=== PATIENT | female | born 1970 | race American Indian/Alaskan Native ===

== ENCOUNTER 2017-04-19 06:58 | Emergency (ER) | payer BC, OTHER ==
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
[2017-04-19 08:24] VITALS: BP 110/69
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
== END 2017-04-19 08:20 | disposition home or self-care (01) ==
LOC: MW.ED 06:58
DX: R07.81 Pleurodynia (principal); F17.210 Nicotine dependence, cigarettes, uncomplicated
CPT/HCPCS: 71020; 71020-26; 81001; 81025; 99283

== ENCOUNTER 2017-06-08 20:38 | Emergency (ER) | payer BC, OTHER ==
[2017-06-08] MEDS ORDERED: Nalbuphine 10 MG/1 ML Vial ONE (21:41)
[2017-06-08] MEDS: Nalbuphine 20 MG/1 ML Amp IM ONE ×2 (21:47→22:07)
--- NOTE | 2017-06-08 21:47 | EDM.PDOC ---
ED HPI GENERAL MEDICAL PROBLEM - General Chief Complaint: Back Pain or Injury Stated Complaint: LOW BACK PAIN/TROUBLE BREATHING Time Seen by Provider: 06/08/17 21:25 Source of Information: Reports: Patient - History of Present Illness INITIAL COMMENTS - FREE TEXT/NARRATIVE: She has worsening low back pain since last night she is not sure what triggered it. no vomiting no blunt force trauma no fecal or urinary incontinence. no fever she has a prior history of chronic back pain. Bilateral Lower Back Pain Score (Numeric/FACES): 10 - Related Data Allergies Allergy/AdvReac Type Severity Reaction Status Date / Time No Known Allergies Allergy Verified 06/08/17 20:49 Home Meds: Home Meds Ibuprofen 1 tab PO ASDIRECTED PRN 07/31/17 [History] Multivitamin [Multivitamins] 1 tab PO DAILY 07/31/17 [History] Polyethylene Glycol 3350 [MiraLAX] 1 dose PO ASDIRECTED PRN 07/31/17 [History] Past Medical History HEENT History: Reports: None Cardiovascular History: Reports: None Respiratory History: Reports: None Gastrointestinal History: Reports: None Genitourinary History: Reports: None 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 Musculoskeletal History: Reports: None Neurological History: Reports: None Psychiatric History: Reports: None Endocrine/Metabolic History: Reports: None Hematologic History: Reports: None Immunologic History: Reports: None Oncologic (Cancer) History: Reports: None Dermatologic History: Reports: None - Infectious Disease History Infectious Disease History: Reports: Chicken Pox - Past Surgical History Female Surgical History: Reports: Section Social & Family History - Family History Family Medical History: Noncontributory - Tobacco Use Smoking Status *Q: Current Every Day Smoker Years of Tobacco use: 32 Packs/Tins Daily: 1 - Caffeine Use Caffeine Use: Reports: Coffee - Recreational Drug Use Recreational Drug Use: No ED ROS GENERAL - Review of Systems Review Of Systems: See Below Constitutional: Denies: Diaphoresis (as per HPI) ED EXAM,LOWER BACK PAIN/INJURY - Physical Exam Exam: See Below Text/Narrative:: alert tearful mild diffuse lumbar tenderness no motor asymmetry of the LE denies radicular pain Course - Vital Signs Last Recorded V/S: Last Vital Signs Temp 97.4 F 06/08/17 20:44 Pulse 84 06/08/17 23:01 Resp 20 06/08/17 23:01 BP 120/70 06/08/17 23:01 Pulse Ox 94 L 06/08/17 23:01 - Orders/Labs/Meds Meds: Medications Discontinued Medications Generic Name Dose Route Start Last Admin Trade Name Maria Victoria PRN Reason Stop Dose Admin Nalbuphine HCl 20 mg 06/08/17 21:27 06/08/17 21:47 Nubain IM 06/08/17 21:28 20 mg ONETIME ONE Administration Nalbuphine HCl Confirm 06/08/17 21:41 06/08/17 21:47 Nubain Administered 06/08/17 21:42 Not Given Dose 20 mg .ROUTE .STK-MED ONE - Re-Assessments/Exams Free Text/Narrative Re-Assessment/Exam: 06/08/17 22:23 she feels significantly improved. Rudy Charlton MD Departure - Departure Time of Disposition: 22:23 Disposition: Home, Self-Care 01 Condition: Fair Clinical Impression: Back pain - Discharge Information Instructions: Back Pain, Adult Referrals: PCP,None [Primary Care Provider] - Forms: ED Department Discharge
[2017-06-08 23:01] VITALS: BP 120/70
== END 2017-06-08 23:15 | disposition home or self-care (01) ==
LOC: MW.ED 20:38
DX: G89.29 Other chronic pain (principal); M54.5 Low back pain; F17.210 Nicotine dependence, cigarettes, uncomplicated
CPT/HCPCS: 96372; 99281; 99283-25; J2300

== ENCOUNTER 2017-08-04 06:46 | Day surgery (SDC) | payer BC, OTHER ==
[~2017-08-04 06:46] MED LIST: Lactated Ringers 1,000 ML IV SCH
[2017-08-04] MEDS ORDERED: Propofol 200 MG/20 ML SDV ONE (07:16)
[2017-08-04] MEDS ORDERED: Dexamethasone 4 MG/ML 5 ML MDV ONE ×2 (07:16→07:21)
[2017-08-04] MEDS ORDERED: fentaNYL 100 MCG/2 ML SDV ONE (07:16)
[2017-08-04] MEDS ORDERED: Lidocaine 2% 100 MG/5 ML Syringe ONE (07:16)
[2017-08-04] MEDS ORDERED: Atropine 0.4 MG/ML SDV ONE ×2 (07:16→07:18)
[2017-08-04] MEDS ORDERED: ePHEDrine 50 MG/ML SDV ONE (07:16)
[2017-08-04] MEDS ORDERED: Ondansetron 4 MG/2 ML SDV ONE ×2 (07:16→07:21)
[2017-08-04] MEDS ORDERED: Midazolam 1 MG/ML 2 ML SDV ONE (07:17)
[2017-08-04] MEDS ORDERED: Bupivacaine 0.5% 30 ML SDV ONE (07:19)
[2017-08-04] MEDS ORDERED: Lidocaine 2% 5 ML SDV ONE (07:21)
[2017-08-04] MEDS ORDERED: Phenylephrine/Normal Saline 100 MCG/ML 10 ML Syringe ONE (07:21)
[2017-08-04] MEDS ORDERED: Ketorolac 30 MG/ML SDV ONE (07:21)
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
[2017-08-04] MEDS ORDERED: ceFAZolin 1 GM Vial ONE (07:40)
[2017-08-04] MEDS ORDERED: fentaNYL 100 MCG/2 ML SDV IVPUSH PRN (08:45)
[2017-08-04] MEDS ORDERED: Acetaminophen/HYDROcodone 325-5 MG Tab PO PRN (08:54)
--- NOTE | 2017-08-04 08:56 | PCM.OPNOTE ---
- General Post-Op/Procedure Note Date of Surgery/Procedure: 08/04/17 Operative Procedure(s): Excision right breast mass Pre Op Diagnosis: Palpable right breast mass Post-Op Diagnosis: Same Anesthesia Technique: General LMA (ASA II) Primary Surgeon: Jordan Cheema Fluid Replacement, Intraop: 750 EBL in mLs: 10 Condition: Good Free Text/Narrative:: Dictation [id number] CPT CODE 98851
[2017-08-04] MEDS ORDERED: Lactated Ringers 1,000 ML IV SCH (09:00)
--- NOTE | 2017-08-04 09:07 | PCM.POSTAN ---
POST ANESTHESIA ASSESSMENT - MENTAL STATUS Mental Status: Alert - RESPIRATORY Respiratory Status: Respiratory Rate WNL - CARDIOVASCULAR CV Status: Pulse Rate WNL, Blood Pressure Stable - GASTROINTESTINAL GI Status: No Symptoms - PAIN Pain Score: 3 - POST OP HYDRATION Hydration Status: Adequate & Stable - OBSERVATIONS Free Text/Narrative:: no anesthesia problems
[2017-08-04 11:23] VITALS: BP 108/63
--- NOTE | 2017-08-06 08:48 | OR ---
SURGEON: Jordan Cheema M.D. DATE OF PROCEDURE: 08/04/2017 OPERATION PERFORMED: Excision of right breast mass. ANESTHESIA: General LMA. ASA CLASSIFICATION: II. PREOPERATIVE DIAGNOSIS: Palpable right breast known fibrocystic breast disease with proliferative fibrocystic disease. POSTOPERATIVE DIAGNOSIS: Palpable right breast known fibrocystic breast disease with proliferative fibrocystic disease. ESTIMATED BLOOD LOSS: 10 mL. INTRAOPERATIVE FLUID REPLACEMENT: 750 mL of crystalloid. DESCRIPTION OF PROCEDURE: Surgical site had been marked prior to the patient entering the operating room. The patient was taken to the operating room and placed on the operating table in the supine position. Time-out was called for appropriate identification of the patient and procedure. Following satisfactory attainment of general anesthesia with placement of an LMA, the right chest was prepped with DuraPrep solution. Sterile drapes were applied. The mass in question was at the 12 o'clock position. A supraareolar incision was made and deepened through the subcutaneous tissue, obtaining hemostasis with the use of electrocautery. A generous excisional biopsy was carried out using electrocautery. Small bleeding sites were electrocoagulated. 2-0 silk suture was placed at the superior aspect of the specimen prior to handing it off the operating table. Palpation through the incision revealed no other masses within the right breast. The incision was then closed in 2 layers approximating the subcutaneous tissue with 3-0 Polysorb and the skin with subcuticular 4-0 Monocryl. Steri-Strips were placed over the incision, which was then dressed with fluffs and Mefix. Sponge, needle, and instrument counts were all correct. The patient tolerated the procedure well. Following emergence from anesthesia and extubation, she was taken to recovery room in stable condition. DIANN / LOPEZ /[id number] CC: REPORT FAXED TO: DR. MOOKIE MAZARIEGOS [facility] [phone] SANTI
--- NOTE | 2017-08-14 11:54 | OR ---
SURGEON: Jordan Cheema M.D. DATE OF PROCEDURE: 08/04/2017 ADDENDUM: The size of the breast mass removed was 1.6 cm. DIANN / LOPEZ /[id number]
== END 2017-08-04 10:15 | disposition home or self-care (01) ==
LOC: MW.SDS 06:46
PROVIDERS: ATTEND Surgery
DX: D24.1 Benign neoplasm of right breast (principal); F17.210 Nicotine dependence, cigarettes, uncomplicated; K21.9 Gastro-esophageal reflux disease without esophagitis; E66.9 Obesity, unspecified; Z79.899 Other long term (current) drug therapy; Z68.33 Body mass index [BMI] 33.0-33.9, adult
CPT/HCPCS: 19120; 88307; A9270; J0461; J1100; J1885; J2250; J2405; J3010; J7120; 00400; J0690; J2704

== ENCOUNTER 2020-01-06 22:28 | Inpatient (IN) | payer BC ==
[2020-01-06] MEDS ORDERED: Morphine 10 MG/ML Syringe IM ONE (23:26)
[2020-01-06] MEDS ORDERED: Ketorolac 15 MG/ML SDV IM ONE (23:26)
[2020-01-06] MEDS ORDERED: Ondansetron 4 MG Tab.DIS PO ONE (23:26)
[2020-01-07] MEDS ORDERED: Sodium Chloride 0.9% 2.5 ML Syringe FLUSH PRN (00:01)
[2020-01-07] MEDS ORDERED: Sodium Chloride 0.9% 10 ML Syringe FLUSH PRN (00:01)
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
--- NOTE | 2020-01-07 00:42 | CR ---
INDICATION: fall INDICATION: Fall TECHNIQUE: Chest 1 view. COMPARISON: Low lung volumes FINDINGS: Cardiovascular and mediastinum: Heart size and vasculature are normal in caliber and appearance. Mediastinum is within normal limits. Lungs and pleural space: Lungs are clear. No sign of infiltrate or mass. No sign of pleural effusion. No pneumothorax. Bones and soft tissues: No significant findings. IMPRESSION: Low lung volumes. Dictated by Jone Hamilton MD @ 01/07/2020 12:39:56 AM Dictated by: Jone Hamilton MD @ 01/07/2020 00:40:02 (Electronically Signed)
[2020-01-07 01:42] LABS: BLOOD UREA NITROGEN,BUN 11 mg/dL (7.0-18.0); CARBON DIOXIDE,CO2 19.2 mmol/L (21.0-32.0); CHLORIDE,CL 104 mmol/L (98-107); GLUCOSE RANDOM 127 mg/dL (74-106); POTASSIUM,K 4.2 mmol/L (3.5-5.1); SODIUM,NA 140 mmol/L (136-145)
[2020-01-07] MEDS ORDERED: Iopamidol 755 Mg/ML 100 ML Bottle IVPUSH ONE (02:39)
--- NOTE | 2020-01-07 03:12 | CT ---
INDICATION: Status post fall with chest and left rib pain. COMPARISON: Chest radiograph from earlier today. TECHNIQUE: CT examination of the chest was performed during the uneventful intravenous administration of 75 cc of Isovue 370. 3 mm thick axial sections were obtained from above the apices of the lungs to the lung bases. Please note that all CT scans at this facility use dose modulation, iterative reconstruction, and/or weight-based dosing when appropriate to reduce radiation dose to as low as reasonably achievable. FINDINGS: There are acute, nondisplaced left lateral 6th and mildly displaced left lateral 7th rib fractures. There may be an acute, nondisplaced fracture of the left lateral 8th rib, with sharp angulation but no definite cortical step-off. There is an acute, nondisplaced fracture of the posterior right 8th rib. There are acute, moderately displaced fractures of the left posterior 9th and 10th ribs. There is moderate patchy bibasilar infiltrate, consistent with atelectasis. There is no sign of pneumothorax, pleural effusion, or pulmonary contusion. There is mild diffuse ground-glass interstitial density representing mild, nonspecific pulmonary fibrosis. There is satisfactory enhancement of the pulmonary arteries, with no sign of pulmonary embolism. There is no sign of mediastinal or hilar mass or adenopathy. There is moderate LAD coronary calcification. The heart is otherwise normal in appearance for the patient`s age, as are the aorta and other ascending great vessels. There is no sign of supraclavicular or axillary mass or adenopathy. The visualized superior liver, spleen, pancreas, kidneys, and adrenals are normal in appearance. There is a moderate T11 compression fracture, more prominent on the right than the left, of indeterminate age. I do not see any paraspinous soft tissue swelling to suggest that this is an acute fracture. This fracture results in mild scoliosis of the inferior thoracic spine convex towards the left. There is no sign of fracture of the sternum, manubrium, or visualized shoulder girdle,. IMPRESSION: Fractures of the left lateral 6th, 7th, and possibly 8th ribs. Fractures of the posterior left 8th, 9th, and 10th ribs. No sign of pulmonary contusion, pneumothorax, pleural hematoma, or pleural effusion. Moderate patchy bibasilar infiltrates, probably atelectasis. Moderate T11 compression fracture, right greater than left, of indeterminate age. Please note that all CT scans at this facility use dose modulation, iterative reconstruction, and/or weight-based dosing when appropriate to reduce radiation dose to as low as reasonably achievable. Dictated by Darrell Todd MD @ Jan 07 2020 2:58AM Signed by Dr. Darrell Todd @ Jan 07 2020 3:09AM
--- NOTE | 2020-01-07 03:14 | CT ---
INDICATION: Neck pain after fall. COMPARISON: None available TECHNIQUE: CT examination of the lumbar spine is performed with spiral technique without contrast. 2 millimeter thick axial, sagittal and coronal reconstructions were made. Please note that all CT scans at this facility use dose modulation, iterative reconstruction, and/or weight-based dosing when appropriate to reduce radiation dose to as low as reasonably achievable. FINDINGS: : There is mild anterior wedging of the L3 vertebral body with mild depression of the superior endplate, findings a mild compression fracture of indeterminate age. I do not see any definite paraspinous soft tissue swelling to suggest an acute fracture, but an acute fracture cannot be excluded. The rest of the lumbar vertebral bodies are normal in height with no sign of any additional compression fractures. The intervertebral discs are normal in height. No foraminal stenosis is evident. The visualized abdominal viscera is normal in appearance. IMPRESSION: Mild L3 compression fracture of indeterminate age. Please note that all CT scans at this facility use dose modulation, iterative reconstruction, and/or weight-based dosing when appropriate to reduce radiation dose to as low as reasonably achievable. Dictated by Darrell Todd MD @ Jan 07 2020 3:10AM Signed by Dr. Darrell Todd @ Jan 07 2020 3:13AM
[2020-01-07] MEDS ORDERED: Lidocaine 5% 700 MG Patch TOP ONE (03:23)
[2020-01-07] MEDS ORDERED: cefTRIAXone 1 GM in Premix Bag 1 BAG IV ONE (03:23)
[2020-01-07] MEDS ORDERED: Lidocaine 5% 700 MG Patch ONE (03:24)
[2020-01-07] MEDS ORDERED: HYDROmorphone 2 MG/ML Syringe IVPUSH ONE (03:24)
[2020-01-07] MEDS ORDERED: Sodium Chloride 0.9% 10 ML SDV IV STA (03:24)
--- NOTE | 2020-01-07 03:40 | CT ---
INDICATION: Pain after fall COMPARISON: CT of the chest from today. TECHNIQUE: CT examination of the thoracic spine was performed using reconstruction from the spiral CT data of today`s CT of the chest. 2 millimeter thick axial sections were obtained from the base of the neck through the superior lumbar spine. Sagittal and coronal reconstructions were made. Please note that all CT scans at this facility use dose modulation, iterative reconstruction, and/or weight-based dosing when appropriate to reduce radiation dose to as low as reasonably achievable. FINDINGS: : There is a moderate T11 compression fracture, more prominent on the right than the left, resulting in mild scoliosis of the inferior thoracic spine to the left. There is no paraspinous soft tissue swelling and no fracture lines are seen in the endplates to suggest that this is an acute fracture, but an acute fracture cannot be excluded. Moderate sclerosis of the prominently depressed posterior superior endplate is consistent with an old endplate fracture. The rest of the thoracic vertebral bodies are normal in height with no sign of any additional compression fractures. There is mild depression of the superior T3, T4, and T6 endplates consistent with mild endplate fractures of indeterminate age. There is no sign of paraspinous soft tissue swelling. The visualized mediastinal structures are normal in appearance. As seen on the accompanying CT of the chest, there is moderate patchy consolidation of the posterior lower lobes consistent with atelectasis. The acute, moderately displaced, oblique fractures of the posterior left 9th and 10th ribs are again seen. The acute, nondisplaced, oblique fracture of the posterior left 8th rib is again seen. The visualized superior liver, spleen, pancreas, kidneys, and adrenals are normal in appearance. IMPRESSION: Moderate T11 compression fracture, more prominent on the right, of indeterminate age. This results in mild scoliosis of the inferior thoracic spine convex towards the left. Mild superior endplate fractures of T3, T4, and T6, of indeterminate age. Fractures of the posterior left 8th through 10th ribs, as seen on the accompanying CT of the chest. Moderate patchy infiltrate in the posterior lung bases, consistent with atelectasis. Please note that all CT scans at this facility use dose modulation, iterative reconstruction, and/or weight-based dosing when appropriate to reduce radiation dose to as low as reasonably achievable. Dictated by Darrell Todd MD @ Jan 07 2020 3:32AM Signed by Dr. Darrell Todd @ Jan 07 2020 3:39AM
[2020-01-07] MEDS ORDERED: Sodium Chloride 0.9% 1,000 ML IV SCH (03:45)
[2020-01-07] MEDS: Azithromycin 250 MG Tab PO SCH (05:44)
[2020-01-07] MEDS: Morphine 2 MG/ML Syringe IVPUSH PRN ×4 (07:57→22:18)
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
[2020-01-07] MEDS: Nicotine 21 MG/24 Hr Patch TRDERM SCH (10:07)
[2020-01-07] MEDS: Cyclobenzaprine 10 MG Tab PO SCH ×2 (10:07→20:39)
[2020-01-07] MEDS: Benzonatate 100 MG Cap PO PRN ×2 (10:07→18:43)
[2020-01-07] MEDS: Omeprazole 20 MG Cap.CR PO SCH ×2 (10:24→16:30)
--- NOTE | 2020-01-07 11:31 | CR ---
Chest: 2 views of the chest were obtained. Comparison: Prior chest x-ray performed earlier on the same day. Findings: Heart size and mediastinum are within normal limits. Lung markings are slightly increased which is most likely chronic. Mild bibasilar atelectasis is noted. More focal density seen on the lateral view within the lower lung and difficult to exclude pneumonia. Mild scoliosis is noted within the spine. Impression: 1. Bibasilar atelectasis. Equivocal pneumonia is noted on the lateral view (within the lower lobes) if patient has correlating symptoms. 2. Increased lung markings most likely chronic. Diagnostic code #3 This report was dictated in MDT
[2020-01-07] MEDS: Heparin Sodium 5,000 Units/ML Vial SUBCUT SCH (14:09)
[2020-01-07] MEDS: oxyCODONE 5 MG Tab PO PRN ×2 (16:30→20:37)
[2020-01-08] MEDS: oxyCODONE 5 MG Tab PO PRN ×5 (01:43→20:49)
[2020-01-08] MEDS: Heparin Sodium 5,000 Units/ML Vial SUBCUT SCH ×2 (01:44→13:22)
[2020-01-08] MEDS: Morphine 2 MG/ML Syringe IVPUSH PRN ×4 (02:53→18:30)
[2020-01-08] MEDS: Azithromycin 250 MG Tab PO SCH (05:57)
[2020-01-08] MEDS: Omeprazole 20 MG Cap.CR PO SCH ×2 (07:10→16:40)
[2020-01-08 07:37] LABS: BLOOD UREA NITROGEN,BUN 10 mg/dL (7.0-18.0); CARBON DIOXIDE,CO2 27.7 mmol/L (21.0-32.0); CHLORIDE,CL 103 mmol/L (98-107); GLUCOSE RANDOM 108 mg/dL (74-106); POTASSIUM,K 4.7 mmol/L (3.5-5.1); SODIUM,NA 138 mmol/L (136-145)
[2020-01-08] MEDS: Benzonatate 100 MG Cap PO PRN (09:13)
[2020-01-08] MEDS: Cyclobenzaprine 10 MG Tab PO SCH ×2 (09:13→20:49)
[2020-01-08] MEDS: Nicotine 21 MG/24 Hr Patch TRDERM SCH (09:14)
[2020-01-08] MEDS: cefTRIAXone 1 GM in Premix Bag 1 BAG IV SCH (09:17)
[2020-01-08] MEDS: Lidocaine 5% 700 MG Patch TOP PRN (09:20)
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
[2020-01-09] MEDS: Heparin Sodium 5,000 Units/ML Vial SUBCUT SCH ×2 (00:47→12:59)
[2020-01-09] MEDS: oxyCODONE 5 MG Tab PO PRN ×4 (00:48→13:13)
[2020-01-09] MEDS: Morphine 2 MG/ML Syringe IVPUSH PRN (03:52)
[2020-01-09 06:26] LABS: CARBON DIOXIDE,CO2 28.4 mmol/L (21.0-32.0); POTASSIUM,K 4.2 mmol/L (3.5-5.1)
[2020-01-09] MEDS: Omeprazole 20 MG Cap.CR PO SCH ×2 (06:41→17:01)
[2020-01-09] MEDS: Nicotine 21 MG/24 Hr Patch TRDERM SCH (09:04)
[2020-01-09] MEDS: Cyclobenzaprine 10 MG Tab PO SCH ×2 (09:05→20:20)
[2020-01-09] MEDS: cefTRIAXone 1 GM in Premix Bag 1 BAG IV SCH (09:12)
[2020-01-09] MEDS: Lidocaine 5% 700 MG Patch TOP PRN (09:36)
[2020-01-09] MEDS ORDERED: Acetaminophen 325 MG Tab PO PRN (10:17)
--- NOTE | 2020-01-09 10:20 | PCM.PN ---
- General Info Date of Service: 01/09/20 - Review of Systems Systems Review Comment:: right sided pain is improving, denies any fever or cough. - Patient Data Vitals - Most Recent: Last Vital Signs Temp 36.2 C 01/09/20 07:25 Pulse 89 01/09/20 07:25 Resp 16 01/09/20 07:25 BP 126/68 01/09/20 07:25 Pulse Ox 92 L 01/09/20 07:25 Weight - Most Recent: 104.326 kg I&O - Last 24 Hours: Intake & Output 01/08/20 01/09/20 01/09/20 22:59 06:59 14:59 Intake Total 800 500 Output Total 100 550 Balance 700 -50 Lab Results Last 24 Hours: Laboratory Results - last 24 hr 01/09/20 01/09/20 Range/Units 06:00 06:00 WBC 8.49 (4.0-11.0) K/uL RBC 4.60 (4.30-5.90) M/uL Hgb 13.4 (12.0-16.0) g/dL Hct 43.1 (36.0-46.0) % MCV 93.7 (80.0-98.0) fL MCH 29.1 (27.0-32.0) pg MCHC 31.1 (31.0-37.0) g/dL RDW Std Deviation 48.0 (28.0-62.0) fl RDW Coeff of Poly 14 (11.0-15.0) % Plt Count 278 (150-400) K/uL MPV 10.40 (7.40-12.00) fL Neut % (Auto) 63.2 (48.0-80.0) % Lymph % (Auto) 25.8 (16.0-40.0) % [place] % (Auto) 9.2 (0.0-15.0) % Eos % (Auto) 1.3 (0.0-7.0) % Baso % (Auto) 0.5 (0.0-1.5) % Neut # (Auto) 5.4 (1.4-5.7) K/uL Lymph # (Auto) 2.2 (0.6-2.4) K/uL [place] # (Auto) 0.8 (0.0-0.8) K/uL Eos # (Auto) 0.1 (0.0-0.7) K/uL Baso # (Auto) 0.0 (0.0-0.1) K/uL Nucleated RBC % 0.0 /100WBC Nucleated RBCs # 0 K/uL Sodium 140 (136-145) mmol/L Potassium 4.2 (3.5-5.1) mmol/L Chloride 103 (98-107) mmol/L Carbon Dioxide 28.4 (21.0-32.0) mmol/L BUN 9 (7.0-18.0) mg/dL Creatinine 1.0 (0.6-1.0) mg/dL Est Cr Clr Drug Dosing 61.23 mL/min Estimated GFR (MDRD) 58.9 ml/min Glucose 115 H (74-106) mg/dL Calcium 8.2 L (8.5-10.1) mg/dL Total Bilirubin 0.3 (0.2-1.0) mg/dL AST 20 (15-37) IU/L ALT 15 (14-63) IU/L Alkaline Phosphatase 68 (46-116) U/L Total Protein 6.0 L (6.4-8.2) g/dL Albumin 2.8 L (3.4-5.0) g/dL Globulin 3.2 (2.6-4.0) g/dL Albumin/Globulin Ratio 0.9 (0.9-1.6) Med Orders - Current: Current Medications Azithromycin (Zithromax) 250 mg PO Q24H [facility] Benzonatate (Tessalon Perles) 200 mg PO TID PRN PRN Reason: Cough Last Admin: 01/08/20 09:13 Dose: 200 mg Cyclobenzaprine HCl (Flexeril) 10 mg PO BID [facility] Last Admin: 01/09/20 09:05 Dose: 10 mg Heparin Sodium (Porcine) (Heparin Sodium) 5,000 units SUBCUT Q12H [facility] Last Admin: 01/09/20 00:47 Dose: 5,000 units Sodium Chloride (Normal Saline) 1,000 mls @ 999 mls/hr IV ASDIRECTED [facility] Last Admin: 01/07/20 03:41 Dose: 999 mls/hr Ceftriaxone Sodium/Dextrose 1 (gm/ Premix) 50 mls @ 100 mls/hr IV Q24H [facility] Last Admin: 01/09/20 09:12 Dose: 100 mls/hr Lidocaine (Lidoderm 5%) 700 mg TOP DAILY PRN PRN Reason: Pain Last Admin: 01/09/20 09:36 Dose: 700 mg Morphine Sulfate (Morphine) 2 mg IVPUSH Q3H PRN PRN Reason: Pain Last Admin: 01/09/20 03:52 Dose: 2 mg Nicotine (Habitrol) 21 mg TRDERM DAILY [facility] Last Admin: 01/09/20 09:04 Dose: 21 mg Omeprazole (Omeprazole) 20 mg PO BIDAC [facility] Last Admin: 01/09/20 06:41 Dose: 20 mg Oxycodone HCl (Oxycodone) 5 mg PO Q4H PRN PRN Reason: Pain Last Admin: 01/09/20 09:05 Dose: 5 mg Sodium Chloride (Saline Flush) 10 ml FLUSH ASDIRECTED PRN PRN Reason: Keep Vein Open Sodium Chloride (Saline Flush) 2.5 ml FLUSH ASDIRECTED PRN PRN Reason: Keep Vein Open Discontinued Medications Azithromycin (Zithromax) 500 mg PO Q24H [facility] Last Admin: 01/08/20 05:57 Dose: 500 mg Hydromorphone HCl (Dilaudid) 1 mg IVPUSH ONETIME ONE Stop: 01/07/20 03:25 Last Admin: 01/07/20 03:33 Dose: 1 mg Ceftriaxone Sodium/Dextrose 1 (gm/ Premix) 50 mls @ 100 mls/hr IV ONETIME ONE Stop: 01/07/20 03:52 Last Admin: 01/07/20 03:30 Dose: 100 mls/hr Iopamidol (Isovue-370 (76%)) 75 ml IVPUSH ONETIME ONE Stop: 01/07/20 02:40 Last Admin: 01/07/20 02:39 Dose: 75 ml Ketorolac Tromethamine (Toradol) 15 mg IM ONETIME ONE Stop: 01/06/20 23:27 Last Admin: 01/06/20 23:47 Dose: 15 mg Lidocaine (Lidoderm 5%) 1,400 mg TOP ONETIME ONE Stop: 01/07/20 03:24 Last Admin: 01/07/20 03:27 Dose: 1,400 mg Lidocaine (Lidoderm 5%) Confirm Administered Dose 1,400 mg .ROUTE .[facility] ONE Stop: 01/07/20 03:25 Last Admin: 01/07/20 03:40 Dose: Not Given Morphine Sulfate (Morphine) 8 mg IM ONETIME ONE Stop: 01/06/20 23:27 Last Admin: 01/06/20 23:47 Dose: 8 mg Ondansetron HCl (Zofran Odt) 4 mg PO ONETIME ONE Stop: 01/06/20 23:27 Last Admin: 01/06/20 23:46 Dose: 4 mg Sodium Chloride (Normal Saline) 1,000 ml IV NOW STA Stop: 01/07/20 03:25 Last Admin: 01/07/20 03:41 Dose: Not Given - Exam General: Alert, Oriented Neck: Supple Lungs: Clear to Auscultation, Normal Respiratory Effort Cardiovascular: Regular Rate, Regular Rhythm GI/Abdominal Exam: Soft, Non-Tender, No Distention Extremities: Non-Tender, No Pedal Edema Skin: Warm, Dry, Intact Sepsis Event Note - Evaluation Sepsis Screening Result: No Definite Risk - Focused Exam Vital Signs: Vital Signs Temp Pulse Resp BP Pulse Ox 01/09/20 07:25 36.2 C 89 16 126/68 92 L 01/09/20 03:59 36.5 C 85 17 131/73 92 L 01/08/20 22:55 36.1 C 76 17 141/65 H 95 Date Exam was Performed: 01/09/20 Time Exam was Performed: 10:15 - Problem List Review Problem List Initiated/Reviewed/Updated: Yes - Plan Plan:: 49 yo female admitted following a fall with multiple rib fractures. Rib fractures: pain control with Flexeril, oxycodone, and lidocaine patch Patient on antibiotics due to initially unable to rule out pneumonia. PT to reassess tomorrow, likely discharge home tomorrow.
[2020-01-09] MEDS: Ibuprofen 400 MG Tab PO PRN ×2 (12:59→20:20)
[2020-01-09] MEDS ORDERED: Azithromycin 250 MG Tab PO SCH (18:00)
[2020-01-10] MEDS: oxyCODONE 5 MG Tab PO PRN ×3 (00:13→14:25)
[2020-01-10] MEDS: Heparin Sodium 5,000 Units/ML Vial SUBCUT SCH ×2 (00:16→13:38)
[2020-01-10] MEDS: Ibuprofen 400 MG Tab PO PRN (03:31)
[2020-01-10] MEDS: Omeprazole 20 MG Cap.CR PO SCH (06:43)
[2020-01-10] MEDS: Cyclobenzaprine 10 MG Tab PO SCH (08:58)
[2020-01-10] MEDS: cefTRIAXone 1 GM in Premix Bag 1 BAG IV SCH (08:58)
[2020-01-10] MEDS: Nicotine 21 MG/24 Hr Patch TRDERM SCH (08:58)
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
[2020-01-10 13:02] VITALS: BP 128/80; PULSE 96
== END 2020-01-10 16:55 | disposition home or self-care (01) | DRG 135 ==
LOC: MW.ED 22:28 → MW.MS 01-07 04:11 → OBSVTOIN 01-08 09:13
PROVIDERS: ADMIT Internal Medicine; ATTEND Internal Medicine
DX: S22.42XA Multiple fractures of ribs, left side, initial encounter for closed fracture (principal); J18.9 Pneumonia, unspecified organism; W17.89XA Other fall from one level to another, initial encounter; K21.9 Gastro-esophageal reflux disease without esophagitis; E66.9 Obesity, unspecified; F17.210 Nicotine dependence, cigarettes, uncomplicated; Z79.899 Other long term (current) drug therapy; Z87.440 Personal history of urinary (tract) infections; Z98.51 Tubal ligation status; S22.089S Unspecified fracture of T11-T12 vertebra, sequela; Z68.38 Body mass index [BMI] 38.0-38.9, adult
CPT/HCPCS: 36415; 71045; 71045-26; 71046; 71046-26; 71260; 71260-26; 72128; 72128-26; 72131; 72131-26; 80048; 80053; 81003; 84702; 84703; 85025; 96365; 96372; 96375; 96376; 97161-GP; 97530-GP; 99284; 99285-25; A9270-GY; G0378; J0696; J1170; J1644; J1885; J2270; J7030; Q9967

== ENCOUNTER 2025-02-12 12:51 | Emergency (ER) | payer BC ==
[2025-02-12 13:02] VITALS: BP 138/84; PULSE 112
[2025-02-12] MEDS ORDERED: Sodium Chloride 0.9% 2.5 ML Syringe FLUSH PRN (13:09)
[2025-02-12] MEDS ORDERED: Sodium Chloride 0.9% 10 ML Syringe FLUSH PRN (13:09)
[2025-02-12] MEDS: Ketorolac 30 MG/ML SDV IM ONE (13:27)
[2025-02-12] MEDS: Ketorolac 30 MG/ML SDV IVPUSH ONE (13:29)
[2025-02-12 13:35] LABS: BASOPHILS ABSOLUTE AUTO 0.08 K/uL (0.00-0.20); BASOPHILS PERCENT AUTO 0.6 % (0.0-1.0); EOSINOPHILS ABSOLUTE AUTO 0.12 K/uL (0.00-0.45); EOSINOPHILS PERCENT AUTO 0.9 % (0.0-6.0); IMMATURE GRAN ABSOLUTE AUTO 0.11 K/uL (0.00-0.05); IMMATURE GRAN PERCENT AUTO 0.8 % (0.0-0.4); LYMPHOCYTES ABSOLUTE AUTO 2.15 K/uL (1.00-4.80); LYMPHOCYTES PERCENT AUTO 15.6 % (24.0-44.0); MEAN PLATELET VOLUME 10.2 fL (9.4-12.3); MONOCYTES ABSOLUTE AUTO 0.83 K/uL (0.00-0.80); MONOCYTES PERCENT AUTO 6.0 % (0.0-8.0); NEUTROPHILS ABSOLUTE AUTO 10.53 K/uL (1.80-7.70); NEUTROPHILS PERCENT AUTO 76.1 % (41.0-71.0); NRBC ABSOLUTE 0.00 K/uL (0.00-0.02); NRBC PERCENT 0.0 /100WBC (0.0-0.2); PLATELET COUNT,PLT 295 K/uL (150-400); RED BLOOD CELL COUNT 4.88 M/uL (4.10-5.30); WHITE BLOOD CELL COUNT,WBC 13.82 K/uL (3.9-11.3)
[2025-02-12 14:01] LABS: A/G RATIO 0.9 (0.9-1.6); ALANINE AMINOTRANSFERASE,ALT 21 IU/L (14-63); ASPARTATE AMNIOTRANSFERASE,AST 17 IU/L (15-37); BILIRUBIN TOTAL 0.3 mg/dL (0.2-1.0); BLOOD UREA NITROGEN,BUN 14 mg/dL (7.0-18.0); CARBON DIOXIDE,CO2 27.8 mmol/L (21.0-32.0); CHLORIDE,CL 105 mmol/L (98-107); CREATININE 1.0 mg/dL (0.6-1.0); EST CRCL DRUG DOSING (CG) 57.87 mL/min; GLUCOSE RANDOM 124 mg/dL (74-106); POTASSIUM,K 4.3 mmol/L (3.5-5.1); PROTEIN TOTAL,TP 6.6 g/dL (6.4-8.2); SODIUM,NA 140 mmol/L (136-145)
[2025-02-12 14:08] LABS: ESTIMATED GFR 67 mL/min (>60)
== END 2025-02-12 16:44 | disposition home or self-care (01) ==
LOC: MW.ED 12:51
DX: R55 Syncope and collapse (principal); S22.41XA Multiple fractures of ribs, right side, initial encounter for closed fracture; F17.210 Nicotine dependence, cigarettes, uncomplicated; K21.9 Gastro-esophageal reflux disease without esophagitis; Z79.899 Other long term (current) drug therapy; Z86.16 Personal history of COVID-19; W07.XXXA Fall from chair, initial encounter; Y93.89 Activity, other specified
CPT/HCPCS: 36415; 70450; 71250; 72125; 80053; 83735; 84484; 85025; 93005; 96374; 99284; J1885; 93010; 99283